=== PATIENT | female | born 1965 | race Caucasian/White ===

== ENCOUNTER 2017-01-08 19:12 | Emergency (ER) | payer OTHER ==
[~2017-01-08] VITALS: Ht 167.6 cm; Wt 51.0 kg
[2017-01-08 19:22] VITALS: Ht 167.6 cm; Wt 51.0 kg
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
[2017-01-08] MEDS ORDERED: LORAZEPAM 1 MG TAB PO ONE (21:00)
== END 2017-01-08 21:30 | disposition left against medical advice (07) ==
LOC: E/R 19:12
DX: F29 Unspecified psychosis not due to a substance or known physiological condition (principal); F17.210 Nicotine dependence, cigarettes, uncomplicated
CPT/HCPCS: 99284